=== PATIENT | female | born 1945 | race Caucasian/White ===

== ENCOUNTER 2021-05-26 07:49 | Emergency (ER) | payer OTHER ==
[2021-05-26] MEDS ORDERED: ACETAMINOPHEN 325 MG TABLET (FP) PO ONE (07:58)
[2021-05-26 08:07] VITALS: BP 151/92; PULSE 90; TEMP 98.3; BMI 26.6
[2021-05-26] MEDS ORDERED: ACETAMINOPHEN 325 MG TABLET (FP) ONE (08:08)
== END 2021-05-26 09:22 | disposition home or self-care (01) ==
LOC: FER 07:49
DX: S80.911A Unspecified superficial injury of right knee, initial encounter (principal)
CPT/HCPCS: 73562-TC-RT-FY; 99284-25

== ENCOUNTER 2021-06-29 16:10 | Emergency (ER) | payer OTHER ==
[2021-06-29 16:19] VITALS: TEMP 99; BMI 26.2
[2021-06-29] MEDS ORDERED: MAGNESIUM CITRATE 300 ML BOTTLE PO ONE (18:26)
[2021-06-29] MEDS ORDERED: MAGNESIUM CITRATE 300 ML BOTTLE ONE (18:45)
[2021-06-29 18:47] LABS: CALCIUM OXALATE CRYSTALS FEW /hpf (NONE SEEN)
[2021-06-29 18:57] VITALS: BP 160/91; PULSE 96
== END 2021-06-29 19:02 | disposition home or self-care (01) ==
LOC: FER 16:10
DX: K59.00 Constipation, unspecified (principal)
CPT/HCPCS: 74018-TC-FY; 81003; 81015; 87086; 87186; 99284-25

== ENCOUNTER 2021-08-16 18:43 | Emergency (ER) | payer OTHER ==
[2021-08-16 19:02] VITALS: TEMP 98.9; BMI 24.4
[2021-08-16 20:12] LABS: ALBUMIN 4.2 g/dl (3.4-5.0); BILIRUBIN,TOTAL 0.6 mg/dl (0.2-1); CALCIUM 11.1 mg/dl (8.5-10); CREATININE 0.9 mg/dl (0.55-1.3); TOT PROT 7.3 g/dl (6.4-8.2)
[2021-08-16] MEDS ORDERED: POTASSIUM CHLORIDE TABS 20 MEQ TABLET.ER (FP) PO ONE ×2 (20:21→20:24)
[2021-08-16 20:32] VITALS: BP 153/80; PULSE 80
== END 2021-08-16 20:39 | disposition home or self-care (01) ==
LOC: FER 18:43
DX: E86.0 Dehydration (principal); E87.6 Hypokalemia
CPT/HCPCS: 36415; 80053; 93005; 99284-25